=== PATIENT | female | born 1965 | race Caucasian/White ===

== ENCOUNTER 2018-06-03 09:11 | Outpatient (CLI) | payer BC | END 2018-06-03 09:12 | disposition home or self-care (01) | LOC: BICMAMMO 09:11 | PROVIDERS: ATTEND Obstetrics & Gynecology | DX: Z12.31 Encounter for screening mammogram for malignant neoplasm of breast (principal); Z80.3 Family history of malignant neoplasm of breast; Z85.3 Personal history of malignant neoplasm of breast | CPT/HCPCS: 77063; 77067 ==

== ENCOUNTER 2018-12-02 15:11 | Outpatient (CLI) | payer BC ==
--- NOTE | 2018-12-02 19:20 | CT ---
CT OF THE ABDOMEN AND PELVIS WITHOUT CONTRAST: 12/02/18 INDICATION: Left sided flank pain and back pain. COMPARISON: None. FINDINGS: There is a tiny 1 to 2 mm nonobstructed calculus within the mid to lower left kidney. No hydronephros is is evident. No definite ureteral calculus is noted. There is a normal appendix in the right lower quadrant. The unopacified bowel, pancreas and right adrenal gland are normal appearing. There is a 1.2 cm left adrenal adenoma. No free fluid is evident. There are mild vascular calcifications involving the abdominal aorta. The bladder is decompressed. The rectum and perirectal soft tissues are unremarkable. No acute osseou s abnormality is evident. IMPRESSION: Left nephrolithiasis. No hydronephrosis or definite ureteral calculus identified. Left adrenal adenoma. POS: BH
== END 2018-12-02 15:12 | disposition home or self-care (01) ==
LOC: SCSCT 15:11
PROVIDERS: ATTEND Physician Assistant
DX: R10.9 Unspecified abdominal pain (principal); N20.0 Calculus of kidney; D35.02 Benign neoplasm of left adrenal gland
CPT/HCPCS: 74176

== ENCOUNTER 2019-12-14 07:42 | Outpatient (CLI) | payer BC ==
--- NOTE | 2019-12-14 08:59 | CT ---
CT ABDOMEN WITH AND WITHOUT IV CONTRAST: HISTORY: Adenoma of the left adrenal gland. COMPARISON: 12/02/2018. FINDINGS: The lung bases are clear. The liver, spleen, pancreas, right adrenal gland, and right kidney are nor mal. No calcified gallstones are seen. The approximately 1 cm left adrenal adenoma is stable. A 2 mm nonobstructing left renal calculus is again seen. Post contrast images demonstrate no evidence of renal mass. There is normal contrast ex cretion by both kidneys into the ureters. No free air, free fluid, or lymphadenopathy is seen in the abdomen or pelvis. There is no evidence o f abdominal aortic aneurysm. There are mild degenerative changes in the spine. IMPRESSION: 1. Stable small left renal adenoma. 2. Tiny nonobstructing left renal calculus. POS: OFF
== END 2019-12-14 07:43 | disposition home or self-care (01) ==
LOC: BICCT 07:42
PROVIDERS: ATTEND Family Medicine
DX: D35.02 Benign neoplasm of left adrenal gland (principal); N20.0 Calculus of kidney
CPT/HCPCS: 74170

== ENCOUNTER 2022-04-27 17:30 | Outpatient (CLI) | payer BC | END 2022-04-27 17:31 | disposition home or self-care (01) | LOC: SLEEPLAB 17:30 | PROVIDERS: ATTEND Family Medicine | DX: G47.33 Obstructive sleep apnea (adult) (pediatric) (principal); R53.83 Other fatigue; R06.83 Snoring; R35.1 Nocturia; G47.00 Insomnia, unspecified | CPT/HCPCS: 95800 ==

== ENCOUNTER 2022-12-22 15:29 | Outpatient (CLI) | payer BC | END 2022-12-22 15:30 | disposition home or self-care (01) | LOC: BICMAMMO 15:29 | PROVIDERS: ATTEND Obstetrics & Gynecology | DX: Z12.31 Encounter for screening mammogram for malignant neoplasm of breast (principal); Z85.3 Personal history of malignant neoplasm of breast; Z98.890 Other specified postprocedural states | CPT/HCPCS: 77063; 77067 ==

== ENCOUNTER 2024-11-22 06:20 | Emergency (ER) | payer BC ==
[2024-11-22] MEDS ORDERED: Ondansetron PF 4 MG/2 ML Vial ONE (07:03)
[2024-11-22] MEDS ORDERED: Ketorolac Tromethamine 30 MG (1 mL) VIAL ONE ×2 (07:03→08:10)
[2024-11-22 07:07] LABS: #Basophils 0.09 10x3/uL (0.0-0.2); #Eosinophils 0.17 10x3/uL (0.0-0.7); #Monocytes 0.65 10x3/uL (0.11-0.59); #Neutrophils 10.12 10x3/uL (1.40-6.50); %Basophils 0.7 % (0.0-1.0); %Eosinophils 1.4 % (0.0-10.0); %Lymphocytes 10.0 % (21.0-51.0); %Monocytes 5.3 % (0.0-10.0); %Neutrophils 82.3 % (42.0-75.0); Hematocrit 40.8 % (36.0-47.0); Hemoglobin 13.5 g/dL (12.0-16.0); Mean Corpuscular Hemoglobin 27.2 pg (27.0-31.0); Mean Corpuscular Volume 82.3 fL (78.0-98.0); Platelet Count 310 10x3/uL (130-400); Red Blood Cell (RBC) Count 4.96 mill/uL (4.20-5.40); White Blood Cell (WBC) Count 12.30 10x3/uL (4.8-10.8)
[2024-11-22 07:22] LABS: ALT (SGPT) 12 U/L (Less than 34); AST (SGOT) 18 U/L (11-34); Albumin 4.4 g/dL (3.1-4.5); Alkaline Phosphatase 64 U/L (40-110); Anion Gap 13 mmol/L (10-20); BUN (Urea Nitrogen) 10 mg/dL (9.8-20.1); Bilirubin, Total 0.7 mg/dL (0.3-1.2); Calc. Creatinine Clearance 0 mL/min (70-130); Calcium 9.3 mg/dL (7.8-10.44); Carbon Dioxide 24 mmol/L (22-29); Chloride 106 mmol/L (98-107); Globulin 3.6 g/dL (2.4-3.5); Glucose 126 mg/dL (70-105); Lipase 23 U/L (8-78); Potassium 3.5 mmol/L (3.5-5.1); Sodium 139 mmol/L (136-145)
[2024-11-22 07:40] LABS: Bacteria/HPF None Seen HPF (None Seen); CAUTI Indications for Culture Dysuria,urgency,freq; Glucose, Urine (Dipstick) Normal (Negative); Leukocyte Negative Leu/uL (Negative); Protein, Urine (Dipstick) Negative (Neg-Trace); RBC/HPF 0-3 HPF (0-3); Specific Gravity, Urine 1.010 (1.002-1.036); WBC/HPF 0-3 HPF (0-3)
[2024-11-22 08:11] LABS: Urine Culture Reflex No No
[2024-11-22] MEDS ORDERED: Iopamidol-370 76% 500 ML MDV (1 ML CHARGE) ONE (12:34)
== END 2024-11-22 10:30 | disposition home or self-care (01) ==
LOC: ERS 06:20
DX: R10.2 Pelvic and perineal pain (principal)
CPT/HCPCS: 74177; 76856; 80053; 81001; 83690; 85025; 96374; 96375; 96376; J1885; J2405; Q9967

== ENCOUNTER 2025-01-01 12:57 | Outpatient (CLI) | payer BC | END 2025-01-01 12:58 | disposition home or self-care (01) | LOC: BICMAMMO 12:57 | PROVIDERS: ATTEND Obstetrics & Gynecology | DX: Z12.31 Encounter for screening mammogram for malignant neoplasm of breast (principal); Z80.3 Family history of malignant neoplasm of breast; Z85.3 Personal history of malignant neoplasm of breast; Z98.890 Other specified postprocedural states | CPT/HCPCS: 77063; 77067 ==